=== PATIENT | male | born 1970 | race Caucasian/White ===

== ENCOUNTER 2021-04-14 15:00 | Inpatient (IN) | payer SELFPAY ==
[~2021-04-14] VITALS: Ht 165.1 cm; Wt 49.5 kg
[~2021-04-14 15:00] MED LIST: OXYC5CAP PO; PRED20TA PO
[2021-04-14] MEDS ORDERED: IV NORMAL SALINE 1000ML BAG 1,000 ML IV ONE (15:30)
[2021-04-14] MEDS ORDERED: KETOROLAC 30 MG/ML VIAL. IVP ONE (15:30)
[2021-04-14 16:02] LABS: BASO % 1 % (0-3); EOS # 0.1 x10^3/uL (0.0-0.7); EOS % 2 % (0-3); HEMATOCRIT 40.5 % (39.0-53.0); HEMOGLOBIN 13.9 g/dL (13.0-17.5); LYMPH # 1.1 x10^3/uL (1.0-4.8); LYMPH % 24 % (24-48); MEAN CORPUSCULAR HEMOGLOBIN 32 pg (25-35); MEAN CORPUSCULAR HGB CONC 34 g/dL (31-37); MEAN CORPUSCULAR VOLUME 92 fL (79-100); MONO # 0.2 x10^3/uL (0.0-1.1); MONO % 4 % (0-9); NEUT % 69 % (31-73); PLATELET COUNT 291 x10^3/uL (140-400); RED CELL DISTRIBUTION WIDTH 15.2 % (11.5-14.5); WHITE BLOOD COUNT 4.4 x10^3/uL (4.0-11.0)
[2021-04-14 16:09] LABS: CALCIUM 9.3 mg/dL (8.5-10.1); CREATININE 0.9 mg/dL (0.7-1.3); GFR 90.1; POTASSIUM 4.2 mmol/L (3.5-5.1)
[2021-04-14 16:15] LABS: ALBUMIN 3.6 g/dL (3.4-5.0); TOTAL BILIRUBIN 0.4 mg/dL (0.2-1.0); TOTAL PROTEIN 7.1 g/dL (6.4-8.2)
[2021-04-14 16:50] LABS: BILIRUBIN,URINE NEGATIVE (NEG); CLARITY,URINE CLEAR; COLOR,URINE YELLOW; NITRITE,URINE NEGATIVE (NEG); PH,URINE 6.5 (<5.0-8.0); PROTEIN,URINE NEGATIVE (NEG-TRACE)
[2021-04-14 16:57] LABS: BACTERIA,URINE 0 /HPF (0-FEW); RBC,URINE 0 /HPF (0-2); WBC,URINE 0 /HPF (0-4)
[2021-04-14] MEDS ORDERED: CONTRAST GIVEN. MC PRN (18:00)
[2021-04-14] MEDS ORDERED: IOHEXOL 300 MG/ML 100ML VIAL. IV ONE (18:00)
--- NOTE | 2021-04-14 18:33 | RAD ---
CT ABDOMEN+PELVIS W History: Left upper quadrant pain Comparison: 02/02/2021. Technique: After administration of intravenous contrast, helical CT of the abdomen and pelvis was per formed from the lung bases through the ischial tuberosities. Coronal and sagittal reconstructions wer e obtained. 75 mL of Omnipaque 300 were used. One or more of the following dose reduction techniques were utilized: Automated exposure control (AEC), Adjustment of mA and/or kV according to patient size , Use of iterative reconstruction technique such as ASiR, CT scan done according to ALARA and image g ently/image wisely Abdomen Findings: The visualized lung bases are clear. Extensive peripancreatic inflammation with numerous collections in and adjacent to the pancreas. Incr eased size of collection in the head of the pancreas measuring 3.4 x 3.4 cm, previously 1.5 x 1.5 cm. Multiloculated collection along the tail of the pancreas measuring 7.5 x 6.3 cm previously measured 10.9 x 8.0 cm. The liver, gallbladder, spleen, and bilateral adrenal glands are normal. Symmetric renal enhancement. There is no focal renal mass. There is no hydronephrosis. The visualized loops of small bowel are normal. The visualized loops of large bowel are normal. There is no evidence of bowel obstruction. Appendix is is not seen. Mild upper abdominal and pelvic free fluid. There is no mesenteric or retroperitoneal adenopathy. The abdominal aorta is normal in caliber. Pelvis Findings: Urinary bladder is normal. No pelvic free fluid. There is no pelvic or inguinal adenopathy. Degenerative changes of the spine. Grade 1 anterolisthesis at L5-S1 due to bilateral L5 pars defect. IMPRESSION: Findings suggestive of acute on chronic pancreatitis, with extensive peripancreatic fluid and numerou s pancreatic and peripancreatic collections. Collection in the pancreatic head has increased since e prior exam, while a large collection along the tail has decreased in size. Electronically signed by: David England MD (04/14/2021 6:31 PM) [facility]
--- NOTE | 2021-04-14 20:23 | PHYS DOC ---
Past Medical History Past Surgical History: Other Additional Past Surgical Histo: JAW Smoking Status: Current Every Day Smoker Alcohol Use: None General Adult EDM: Chief Complaint: ABDOMINAL PAIN HPI: HPI: Patient is a 50-year-old male presents to the emergency department chief complaint of left upper quadrant pain for the past 3 to 4 months stating that it became increasingly worse 2 days ago. Patient denies nausea vomiting or diarrhea. Patient states he has pancreatitis related to alcohol abuse, patient reports his last drink was in October 2020. Patient reports he has had every day smoker. Patient has not taken any medications prescription or [id number] for pain. Has not tried any nonpharmacological pain relief methods, states he does not have insurance and does not follow-up with a doctor, denies allergies to medications, states he takes no prescription medications at home. Patient reports his pain as an 8 out of 10, increases with movement and palpation, nothing seems to help it. Patient denies chest pain, shortness of breath, chest congestion, recent fever or chills. She denies nausea, vomiting, or diarrhea. Patient denies any other physical complaints or physical concerns. Review of Systems: Review of Systems: 14 body systems of review of systems have been reviewed. See HPI for pertinent positives and negative responses, otherwise all other systems are negative, nonpertinent or noncontributory. Constitutional: Negative except as outlined in HPI above. Skin: Negative except as outlined in HPI above. Eyes: Negative except as outlined in HPI above. HENT: Negative except as outlined in HPI above. Respiratory: Negative except as outlined in HPI above. Cardiovascular: Negative except as outlined in HPI above. GI: Negative except as outlined in HPI above. : Negative except as outlined in HPI above. Musculoskeletal: Negative except as outlined in HPI above. Integument: Negative except as outlined in HPI above. Neurologic: Negative except as outlined in HPI above. Endocrine: Negative except as outlined in HPI above. Lymphatic: Negative except as outlined in HPI above. Psychiatric: Negative except as outlined in HPI above. Heart Score: C/O Chest Pain: No Risk Factors: Risk Factors: DM, Current or recent (<one month) smoker, HTN, HLP, family history of CAD, obesity. Risk Scores: Score 0 - 3: 2.5% MACE over next 6 weeks - Discharge Home Score 4 - 6: 20.3% MACE over next 6 weeks - Admit for Clinical Observation Score 7 - 10: 72.7% MACE over next 6 weeks - Early Invasive Strategies Current Medications: Current Medications Medications (Trade) Dose Ordered Sig/Wiliam Start Time Stop Time Status Last Admin Dose Admin Info (CONTRAST GIVEN -- Rx MONITORING) 1 each PRN DAILY PRN 04/14/21 18:00 04/16/21 17:59 Iohexol (Omnipaque 300 Mg/ml) 70 ml 1X ONCE 04/14/21 18:00 04/14/21 18:01 DC 04/14/21 18:14 70 ML Ketorolac Tromethamine (Toradol 30mg Vial) 30 mg 1X ONCE 04/14/21 15:30 04/14/21 15:31 DC 04/14/21 16:46 30 MG Sodium Chloride 1,000 ml @ 1,000 mls/hr 1X ONCE 04/14/21 15:30 04/14/21 16:29 DC 04/14/21 16:20 1,000 MLS/HR Allergies: Allergies: Allergies Coded Allergies Type Severity Reaction Last Updated Verified No Known Drug Allergies 06/28/20 No Physical Exam: PE: Constitutional: Well developed, well nourished, no acute distress, non-toxic appearance. 50-year-old male in no apparent distress. HENT: Normocephalic, atraumatic. Eyes: Conjunctiva normal, no discharge. Neck: Normal range of motion, no stridor. Cardiovascular: No cyanosis appreciated, distal cap refill less than 2 seconds. Lungs & Thorax: Patient is in no respiratory distress, no audible adventitious lung sounds appreciated. Abdomen: Pain to palpation right upper quadrant, no skin discoloration or bruising of the abdomen appreciated, no masses appreciated, negative rebound tenderness, negative Del Angel sign, negative psoas sign. Skin: Warm, dry, no erythema, no rash. Back: No tenderness, no deformities. Extremities: No tenderness, no cyanosis, no clubbing, ROM intact, no edema. Neurologic: Alert and oriented X 3, normal motor function, normal sensory function, no focal deficits noted. Psychologic: Affect normal, judgement normal, mood normal. Current Patient Data: Labs: Laboratory Tests Test 04/14/21 15:37 04/14/21 16:43 White Blood Count 4.4 x10^3/uL (4.0-11.0) Red Blood Count 4.40 x10^6/uL (4.30-5.70) Hemoglobin 13.9 g/dL (13.0-17.5) Hematocrit 40.5 % (39.0-53.0) Mean Corpuscular Volume 92 fL (79-100) Mean Corpuscular Hemoglobin 32 pg (25-35) Mean Corpuscular Hemoglobin Concent 34 g/dL (31-37) Red Cell Distribution Width 15.2 % (11.5-14.5) H Platelet Count 291 x10^3/uL (140-400) Neutrophils (%) (Auto) 69 % (31-73) Lymphocytes (%) (Auto) 24 % (24-48) Monocytes (%) (Auto) 4 % (0-9) Eosinophils (%) (Auto) 2 % (0-3) Basophils (%) (Auto) 1 % (0-3) Neutrophils # (Auto) 3.0 x10^3/uL (1.8-7.7) Lymphocytes # (Auto) 1.1 x10^3/uL (1.0-4.8) Monocytes # (Auto) 0.2 x10^3/uL (0.0-1.1) Eosinophils # (Auto) 0.1 x10^3/uL (0.0-0.7) Basophils # (Auto) 0.0 x10^3/uL (0.0-0.2) Sodium Level 142 mmol/L (136-145) Potassium Level 4.2 mmol/L (3.5-5.1) Chloride Level 104 mmol/L (98-107) Carbon Dioxide Level 30 mmol/L (21-32) Anion Gap 8 (6-14) Blood Urea Nitrogen 13 mg/dL (8-26) Creatinine 0.9 mg/dL (0.7-1.3) Estimated GFR (Cockcroft-Gault) 90.1 BUN/Creatinine Ratio 14 (6-20) Glucose Level 100 mg/dL (70-99) H Calcium Level 9.3 mg/dL (8.5-10.1) Total Bilirubin 0.4 mg/dL (0.2-1.0) Aspartate Amino Transferase (AST) 15 U/L (15-37) Alanine Aminotransferase (ALT) 27 U/L (16-63) Alkaline Phosphatase 99 U/L (46-116) Total Protein 7.1 g/dL (6.4-8.2) Albumin 3.6 g/dL (3.4-5.0) Albumin/Globulin Ratio 1.0 (1.0-1.7) Lipase 202 U/L (73-393) Urine Collection Type Unknown Urine Color Yellow Urine Clarity Clear Urine pH 6.5 (<5.0-8.0) Urine Specific [place] 1.015 (1.000-1.030) Urine Protein Negative mg/dL (NEG-TRACE) Urine Glucose (UA) Negative mg/dL (NEG) Urine Ketones (Stick) Negative mg/dL (NEG) Urine Blood Negative (NEG) Urine Nitrite Negative (NEG) Urine Bilirubin Negative (NEG) Urine Urobilinogen Dipstick 1.0 mg/dL (0.2 mg/dL) Urine Leukocyte Esterase Negative (NEG) Urine RBC 0 /HPF (0-2) Urine WBC 0 /HPF (0-4) Urine Bacteria 0 /HPF (0-FEW) Urine Mucus Mod /LPF Laboratory Tests 04/14/21 15:37 Laboratory Tests 04/14/21 15:37 Vital Signs: Vital Signs Date Time Temp Pulse Resp B/P (MAP) Pulse Ox O2 Delivery O2 Flow Rate FiO2 04/14/21 18:15 75 135/63 (87) 99.0 04/14/21 16:10 100 04/14/21 15:07 98.0 16 Room Air 98.0 EKG: EKG: [] Radiology/Procedures: Radiology/Procedures: PATIENT: LEIGH OTERO ACCOUNT: [id number] : 1970 LOCATION: ER AGE: 50 SEX: M EXAM STATUS: PRE ER ORD. PHYSICIAN: CAR MENDOZA APRN REASON: Left upper quadrant pain PROCEDURE: CT ABD PELV W/ IV CONTRST ONLY CT ABDOMEN+PELVIS W History: Left upper quadrant pain Comparison: 02/02/2021. Technique: After administration of intravenous contrast, helical CT of the abd omen and pelvis was performed from the lung bases through the ischial tuberosities. Coronal and sagittal reconstructions were obtained. 75 mL of Omnipaque 300 were used. One or more of the following dose reduction techniques were utilized: Automated exposure control (AEC), Adjustment of mA and/or kV according to patient size, Use of iterative reconstruction technique such as ASiR, CT scan done according to ALARA and image gently/image wisely Abdomen Findings: The visualized lung bases are clear. Extensive peripancreatic inflammation with numerous collections in and adjacent to the pancreas. Increased size of collection in the head of the pancreas measuring 3.4 x 3.4 cm, previously 1.5 x 1.5 cm. Multiloculated collection along the tail of the pancreas measuring 7.5 x 6.3 cm previously measured 10.9 x 8.0 cm. The liver, gallbladder, spleen, and bilateral adrenal glands are normal. Symmetric renal enhancement. There is no focal renal mass. There is no hydronephrosis. The visualized loops of small bowel are normal. The visualized loops of large bowel are normal. There is no evidence of bowel obstruction. Appendix is is not seen. Mild upper abdominal and pelvic free fluid. There is no mesenteric or retroperitoneal adenopathy. The abdominal aorta is normal in caliber. Pelvis Findings: Urinary bladder is normal. No pelvic free fluid. There is no pelvic or inguinal adenopathy. Degenerative changes of the spine. Grade 1 anterolisthesis at L5-S1 due to bilateral L5 pars defect. IMPRESSION: Findings suggestive of acute on chronic pancreatitis, with extensive sanjeev pancreatic fluid and numerous pancreatic and peripancreatic collections. Collection in the pancreatic head has increased since the prior exam, while a large collection along the tail has decreased in size. Electronically signed by: David England MD (04/14/2021 6:31 PM) [facility] Course & Med Decision Making: Course & Med Decision Making Pertinent Labs and Imaging studies reviewed. (See chart for details) 50-year-old male, vital signs reviewed, presents emergency department complaining of pancreatitis pain for the past 3 to 4 months, increased last 2 days. Physical examination consistent with pancreatitis type pain, will order urinalysis assay, lab work for acute abdominal process. Will defer CT abdomen pelvis until urinalysis assay to rule out stone process. Patient's urine was not infected, no hematuria, will order CT abdomen pelvis with IV contrast only. CT abdomen pelvis concerning for acute on chronic pancreatitis with changes showing worsening of pancreatitis process. Discussed findings with patient, recommended admission to hospital, remaining n.p.o., pain control, fluids, patient is amenable to this plan. Patient states his pain is currently a 1 and is tolerable at this time, denies nausea. Called and discussed patient case and ED work-up with inpatient management physician Dr. Blankenship who agrees patient's presentation and case warrants admission to the medical surgical unit for pancreatitis flareup. 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 Patient is hemodynamically stable, nontoxic in appearance, and in no apparent distress at time of admission. Dragon Disclaimer: Sunitha Disclaimer: This electronic medical record was generated, in whole or in part, using a voice recognition dictation system. Departure Departure Impression: Primary Impression: Acute on chronic pancreatitis Additional Impression: Abdominal pain Qualified Codes: R10.12 - Left upper quadrant pain Disposition: ADMITTED INPATIENT Admitting Physician: ALFREDO (Admit to Dr. Blankenship on med surge unit.) Condition: STABLE Referrals: NO PCP (PCP) CAR MENDOZA APRN Apr 14, 2021 20:23
[2021-04-14] MEDS ORDERED: ONDANSETRON PF 4 MG/2 ML VIAL. IVP PRN (20:30)
[2021-04-14 20:41] LABS: BARBITURATES NEG (NEG); BENZODIAZEPINES NEG (NEG); CANNABINOIDS POS (NEG); COCAINE NEG (NEG); METHADONE NEG (NEG); OPIATES NEG (NEG); PHENCYCLIDINE NEG (NEG)
[2021-04-14 20:43] LABS: AMPHETAMINE/METHAMPHETAMINE NEG (NEG)
[2021-04-14 21:40] VITALS: BP 135/79
[2021-04-14] MEDS: IV NORMAL SALINE 1000ML BAG 1,000 ML IV SCH (22:06)
[2021-04-14] MEDS: MORPHINE SULFATE 4 MG/ML INJ. IVP PRN (22:06)
--- NOTE | 2021-04-14 23:00 | NUR ---
ADMIT NOTE The patient, LEIGH OTERO, 50 y/o, M admitted by SHINE DOUGHERTY MD, was given written information regarding hospital policies, unit procedures and contact persons. Patient orientated to room, plan of care discussed, and admit packet reviewed. Patient's allergies and preferred pharmacy verified; patient reports no active home medications. Patient in bed resting, bed in lowest/locked position, and call light within reach; no other needs voiced at this time.
[2021-04-15 03:42] VITALS: BP 111/70
[2021-04-15] MEDS: IV NORMAL SALINE 1000ML BAG 1,000 ML IV SCH ×6 (04:16→21:57)
[2021-04-15] MEDS: MORPHINE SULFATE 4 MG/ML INJ. IVP PRN ×3 (04:17→18:15)
--- NOTE | 2021-04-15 07:45 | PDOC1 ---
History and Physical Date of Service: DOS: DATE: 04/15/21 TIME: 07:39 Chief Complaint: Chief Complain: ABD pain History of Present Illness: HPI: 50-year-old male presents to the emergency department chief complaint of left upper quadrant pain for the past 3 to 4 months stating that it became increasingly worse 2 days ago. Patient denies nausea vomiting or diarrhea. Patient states he has pancreatitis related to alcohol abuse, patient reports his last drink was in October 2020. Patient reports he has had every day smoker. Stephy ent has not taken any medications prescription or [id number] for pain. Has not tried any nonpharmacological pain relief methods, states he does not have insurance and does not follow-up with a doctor, denies allergies to medications, states he takes no prescription medications at home. Patient reports his pain as an 8 out of 10, increases with movement and palpation, nothing seems to help it. Patient denies chest pain, shortness of breath, chest congestion, recent fever or chills. She denies nausea, vomiting, or diarrhea. Patient denies any other physical complaints or physical concerns. Past Medical/Surgical History: PMH/PSH: Past Surgical History: JAW Allergies: Allergies: Coded Allergies: No Known Drug Allergies (Unverified , 06/28/20) Family History: Family History: Reviewed with no relevant findings Social History: Social History: Smoking Status: Current Every Day Smoker Alcohol Use: None Current Medications: Current Medications Current Medications Sodium Chloride 1,000 ml @ 1,000 mls/hr 1X ONCE IV Last administered on 04/14/21at 16:20; Start 04/14/21 at 15:30; Stop 04/14/21 at 16:29; Status DC Ketorolac Tromethamine (Toradol 30mg Vial) 30 mg 1X ONCE IVP Last administered on 04/14/21at 16:46; Start 04/14/21 at 15:30; Stop 04/14/21 at 15:31; Status DC Iohexol (Omnipaque 300 Mg/ml) 70 ml 1X ONCE IV Last administered on 04/14/21at 18:14; Start 04/14/21 at 18:00; Stop 04/14/21 at 18:01; Status DC Info (CONTRAST GIVEN -- Rx MONITORING) 1 each PRN DAILY PRN MC SEE COMMENTS; Start 04/14/21 at 18:00; Stop 04/16/21 at 17:59 Ondansetron HCl (Zofran) 4 mg PRN Q8HRS PRN IVP NAUSEA/VOMITING Last administered on 04/14/21at 22:07; Start 04/14/21 at 20:30; Stop 04/15/21 at 20:29 Morphine Sulfate (Morphine Sulfate) 4 mg PRN Q2HR PRN IVP PAIN Last administered on 04/15/21at 04:17; Start 04/14/21 at 20:30; Stop 04/15/21 at 20:29 Sodium Chloride 1,000 ml @ 125 mls/hr Q8H IV Last administered on 04/15/21at 04:16; Start 04/14/21 at 20:30; Stop 04/15/21 at 20:29 Active Scripts Active No Active Prescriptions or Reported Medications ROS: Review of Systems Review of System REVIEW OF SYSTEMS: GENERAL: Denies weakness SKIN: No bruising, hair changes or rashes. EYES: No blurred, double or loss of vision. NOSE AND THROAT: No history of nosebleeds, hoarseness or sore throat. HEART: No history of palpitations, chest pain or shortness of breath on exertion. LUNGS: Denies cough, hemoptysis, wheezing or shortness of breath. GASTROINTESTINAL: Positive for abdominal pain GENITOURINARY: No history of frequency, urgency, hesitancy or nocturia. NEUROLOGIC: Denies history of numbness, tingling, or tremor. PSYCHIATRIC: No history of panic, anxiety or depression. ENDOCRINE: No history of heat or cold intolerance, polyuria or polydipsia. EXTREMITIES: Denies joint pain, pain on walking or stiffness. Physical Exam: Vital Signs: Vital Signs Date Time Temp Pulse Resp B/P (MAP) Pulse Ox O2 Delivery O2 Flow Rate FiO2 04/15/21 04:50 15 95 Room Air 04/15/21 03:42 97.9 68 111/70 (84) 97.9 04/14/21 18:15 99.0 Physcial Exam: General: Well developed, well nourished, no acute distress, well appearing HEENT: Pupils equally round and reactive to light, EOMI, no discharge, normal conjunctiva Neck: Supple, no nuchal rigidity, no JVD, trachea midline, no tenderness Cardiac: RRR, no murmurs, no gallops, no rubs Chest/Lungs: CTAB, no wheeze, no rhonchi, no crackles Abdomen: soft, non-distended, no guarding, no peritoneal signs, right upper quadrant tenderness Back: No tenderness Extremities: no edema, pulses intact, non-tender,capillary refill <3 sec bilateral upper and lower extremities, Neuro: Alert and oriented x 4, no focal deficits, normal speech Labs: Labs: Laboratory Tests Test 04/14/21 15:37 04/14/21 16:43 04/14/21 20:18 White Blood Count 4.4 x10^3/uL (4.0-11.0) Red Blood Count 4.40 x10^6/uL (4.30-5.70) Hemoglobin 13.9 g/dL (13.0-17.5) Hematocrit 40.5 % (39.0-53.0) Mean Corpuscular Volume 92 fL (79-100) Mean Corpuscular Hemoglobin 32 pg (25-35) Mean Corpuscular Hemoglobin Concent 34 g/dL (31-37) Red Cell Distribution Width 15.2 % (11.5-14.5) Platelet Count 291 x10^3/uL (140-400) Neutrophils (%) (Auto) 69 % (31-73) Lymphocytes (%) (Auto) 24 % (24-48) Monocytes (%) (Auto) 4 % (0-9) Eosinophils (%) (Auto) 2 % (0-3) Basophils (%) (Auto) 1 % (0-3) Neutrophils # (Auto) 3.0 x10^3/uL (1.8-7.7) Lymphocytes # (Auto) 1.1 x10^3/uL (1.0-4.8) Monocytes # (Auto) 0.2 x10^3/uL (0.0-1.1) Eosinophils # (Auto) 0.1 x10^3/uL (0.0-0.7) Basophils # (Auto) 0.0 x10^3/uL (0.0-0.2) Sodium Level 142 mmol/L (136-145) Potassium Level 4.2 mmol/L (3.5-5.1) Chloride Level 104 mmol/L (98-107) Carbon Dioxide Level 30 mmol/L (21-32) Anion Gap 8 (6-14) Blood Urea Nitrogen 13 mg/dL (8-26) Creatinine 0.9 mg/dL (0.7-1.3) Estimated GFR (Cockcroft-Gault) 90.1 BUN/Creatinine Ratio 14 (6-20) Glucose Level 100 mg/dL (70-99) Calcium Level 9.3 mg/dL (8.5-10.1) Total Bilirubin 0.4 mg/dL (0.2-1.0) Aspartate Amino Transf (AST/SGOT) 15 U/L (15-37) Alanine Aminotransferase (ALT/SGPT) 27 U/L (16-63) Alkaline Phosphatase 99 U/L (46-116) Total Protein 7.1 g/dL (6.4-8.2) Albumin 3.6 g/dL (3.4-5.0) Albumin/Globulin Ratio 1.0 (1.0-1.7) Lipase 202 U/L (73-393) Ethyl Alcohol Level < 10 mg/dL (0-10) Urine Collection Type Unknown Urine Color Yellow Urine Clarity Clear Urine pH 6.5 (<5.0-8.0) Urine Specific [place] 1.015 (1.000-1.030) Urine Protein Negative mg/dL (NEG-TRACE) Urine Glucose (UA) Negative mg/dL (NEG) Urine Ketones (Stick) Negative mg/dL (NEG) Urine Blood Negative (NEG) Urine Nitrite Negative (NEG) Urine Bilirubin Negative (NEG) Urine Urobilinogen Dipstick 1.0 mg/dL (0.2 mg/dL) Urine Leukocyte Esterase Negative (NEG) Urine RBC 0 /HPF (0-2) Urine WBC 0 /HPF (0-4) Urine Bacteria 0 /HPF (0-FEW) Urine Mucus Mod /LPF Urine Opiates Screen Neg (NEG) Urine Methadone Screen Neg (NEG) Urine Barbiturates Neg (NEG) Urine Phencyclidine Screen Neg (NEG) Urine Amphetamine/Methamphetamine Neg (NEG) Urine Benzodiazepines Screen Neg (NEG) Urine Cocaine Screen Neg (NEG) Urine Cannabinoids Screen Pos (NEG) Urine Ethyl Alcohol Neg (NEG) SARS-CoV-2 Antigen (Rapid) Negative (NEGATIVE) Laboratory Tests Test 04/14/21 15:37 04/14/21 16:43 04/14/21 20:18 White Blood Count 4.4 x10^3/uL (4.0-11.0) Red Blood Count 4.40 x10^6/uL (4.30-5.70) Hemoglobin 13.9 g/dL (13.0-17.5) Hematocrit 40.5 % (39.0-53.0) Mean Corpuscular Volume 92 fL (79-100) Mean Corpuscular Hemoglobin 32 pg (25-35) Mean Corpuscular Hemoglobin Concent 34 g/dL (31-37) Red Cell Distribution Width 15.2 % (11.5-14.5) Platelet Count 291 x10^3/uL (140-400) Neutrophils (%) (Auto) 69 % (31-73) Lymphocytes (%) (Auto) 24 % (24-48) Monocytes (%) (Auto) 4 % (0-9) Eosinophils (%) (Auto) 2 % (0-3) Basophils (%) (Auto) 1 % (0-3) Neutrophils # (Auto) 3.0 x10^3/uL (1.8-7.7) Lymphocytes # (Auto) 1.1 x10^3/uL (1.0-4.8) Monocytes # (Auto) 0.2 x10^3/uL (0.0-1.1) Eosinophils # (Auto) 0.1 x10^3/uL (0.0-0.7) Basophils # (Auto) 0.0 x10^3/uL (0.0-0.2) Sodium Level 142 mmol/L (136-145) Potassium Level 4.2 mmol/L (3.5-5.1) Chloride Level 104 mmol/L (98-107) Carbon Dioxide Level 30 mmol/L (21-32) Anion Gap 8 (6-14) Blood Urea Nitrogen 13 mg/dL (8-26) Creatinine 0.9 mg/dL (0.7-1.3) Estimated GFR (Cockcroft-Gault) 90.1 BUN/Creatinine Ratio 14 (6-20) Glucose Level 100 mg/dL (70-99) Calcium Level 9.3 mg/dL (8.5-10.1) Total Bilirubin 0.4 mg/dL (0.2-1.0) Aspartate Amino Transf (AST/SGOT) 15 U/L (15-37) Alanine Aminotransferase (ALT/SGPT) 27 U/L (16-63) Alkaline Phosphatase 99 U/L (46-116) Total Protein 7.1 g/dL (6.4-8.2) Albumin 3.6 g/dL (3.4-5.0) Albumin/Globulin Ratio 1.0 (1.0-1.7) Lipase 202 U/L (73-393) Ethyl Alcohol Level < 10 mg/dL (0-10) Urine Collection Type Unknown Urine Color Yellow Urine Clarity Clear Urine pH 6.5 (<5.0-8.0) Urine Specific [place] 1.015 (1.000-1.030) Urine Protein Negative mg/dL (NEG-TRACE) Urine Glucose (UA) Negative mg/dL (NEG) Urine Ketones (Stick) Negative mg/dL (NEG) Urine Blood Negative (NEG) Urine Nitrite Negative (NEG) Urine Bilirubin Negative (NEG) Urine Urobilinogen Dipstick 1.0 mg/dL (0.2 mg/dL) Urine Leukocyte Esterase Negative (NEG) Urine RBC 0 /HPF (0-2) Urine WBC 0 /HPF (0-4) Urine Bacteria 0 /HPF (0-FEW) Urine Mucus Mod /LPF Urine Opiates Screen Neg (NEG) Urine Methadone Screen Neg (NEG) Urine Barbiturates Neg (NEG) Urine Phencyclidine Screen Neg (NEG) Urine Amphetamine/Methamphetamine Neg (NEG) Urine Benzodiazepines Screen Neg (NEG) Urine Cocaine Screen Neg (NEG) Urine Cannabinoids Screen Pos (NEG) Urine Ethyl Alcohol Neg (NEG) SARS-CoV-2 Antigen (Rapid) Negative (NEGATIVE) Images: Images PROCEDURE: CT ABD PELV W/ IV CONTRST ONLY IMPRESSION: Findings suggestive of acute on chronic pancreatitis, with extensive peripancreatic fluid and numerous pancreatic and peripancreatic collections. Collection in the pancreatic head has increased since the prior exam, while a large collection along the tail has decreased in size. Assessment/Plan Assessment/Plan Acute abdominal pain due to acute pancreatitis Multiloculated fluid collections are the pancreas concerning for pancreatic pseudocyst Cannabinoid positivity Admit to hospitalist service for further management Keep n.p.o., advance diet as tolerated Continue IV fluids Pending abdominal ultrasound Pending lipid panel Serial abdominal exams IV pain control GI consult for pancreatic pseudocyst management Lovenox for DVT prophylaxis Protonix GI prophylaxis ADA diet Full code Discussed with RN and SW Disposition inpatient management as above Surrogate decision maker is aKy Lira In addition to my E/M visit, advance care planning done with A total time of 20 minutes was spent from 930 to 950 face to face in discussion with the patient regarding their goals of care, alcohol cessation, THC cessation and low-fat diet. CODE STATUS Justifications for Admission Other Justification SAPPHIRE CAMERON MD Apr 15, 2021 07:44
[2021-04-15] MEDS ORDERED: DOCUSATE SODIUM 100 MG CAPSULE. PO PRN (08:00)
[2021-04-15] MEDS ORDERED: DEXTROSE 50% 25 GM / 50ML DISP.SYRIN. IV PRN (08:00)
[2021-04-15] MEDS ORDERED: PROCHLORPERAZINE 10 MG/2 ML VIAL. IV PRN (08:00)
[2021-04-15] MEDS ORDERED: ACETAMINOPHEN 325 MG TABLET. PO PRN (08:00)
[2021-04-15] MEDS ORDERED: MORPHINE SULFATE 2 MG/ML INJ. IVP PRN (08:00)
[2021-04-15] MEDS ORDERED: SENNOSIDES 8.6 MG TABLET PO PRN (08:00)
[2021-04-15] MEDS ORDERED: ONDANSETRON PF 4 MG/2 ML VIAL. IVP PRN (08:00)
[2021-04-15] MEDS: PANTOPRAZOLE IV PUSH 40 MG VIAL. IVP SCH (09:06)
[2021-04-15] MEDS: ENOXAPARIN 40 MG/0.4 ML SYRINGE. SQ SCH (09:07)
--- NOTE | 2021-04-15 10:31 | RAD ---
EXAM: ULTRASOUND ABDOMEN LIMITED CLINICAL HISTORY: Reason: RUQ pain, rule out gallstone pancreatitis COMPARISON: None available. TECHNIQUE: Limited ultrasound examination of the right upper quadrant of the abdomen was performed. Findings/ impression: The liver length measures 15 cm. The common bile duct measures 2 mm in transverse dimension. The righ t kidney measures 10.7 x 5.5 x 4.2 cm. The gallbladder is mildly distended. No evidence of gallstones . There are multiple fluid collections identified about the pancreas with the largest measuring 7.2 c m could be pseudocysts as seen on the CT scan. Electronically signed by: Miguel Gutiérrez MD (04/15/2021 10:29 AM) [id number]
--- NOTE | 2021-04-15 10:41 | NUR ---
Dr. John here and saw pt. Order to [facility] and to give CLD now. If pt has pain with diet will advance backwards
[2021-04-15 11:00] VITALS: BP 126/79
[2021-04-15 12:39] LABS: CHOLESTEROL/HDL RATIO 4.1
[2021-04-15 15:22] VITALS: BP 150/85
--- NOTE | 2021-04-15 15:38 | PDOC2 ---
GI CONSULT Reason For Consult: pancreatitis HPI: HPI: 50-year-old male admitted with acute on chronic pancreatitis although lipase normal at 202. Imaging suggests further development of pseudocyst. He was last at [facility] 08/07 with the pseudocyst. per review of the records, he was seen by GI, Surgery and IR. IR recommended that he have endoscopic drainage of he pseudocyst. The patient states that he did not followup because he does not have insurance. He stopped drinking alcohol 10/2020. recent ct with Findings suggestive of acute on chronic pancreatitis, with extensive peripancreatic fluid and numerous pancreatic and peripancreatic collections. Collection in the pancreatic head has increased since the prior exam, while a large collection along the tail has decreased in size. Abd sono with The liver length measures 15 cm. The common bile duct measures 2 mm in transverse dimension. The right kidney measures 10.7 x 5.5 x 4.2 cm. The gall bladder is mildly distended. No evidence of gallstones. There are multiple fluid collections identified about the pancreas with the largest measuring 7.2 cm could be pseudocysts as seen on the CT scan. PMH: PMH: Past Medical/Surgical History: PMH/PSH:pancreatitis with pseudocyst last seen [facility] 08/07 Past Surgical History: JAW Allergies: Allergies: Coded Allergies: No Known Drug Allergies (Unverified , 06/28/20) Family History: Family History: Reviewed with no relevant findings Social History: Social History: Smoking Status: Current Every Day Smoker Alcohol Use: None Current Medications: Current Medications Current Medications Sodium Chloride 1,000 ml @ 1,000 mls/hr 1X ONCE IV Last administered on 04/14/21at 16:20; Start 04/14/21 at 15:30; Stop 04/14/21 at 16:29; Status DC Ketorolac Tromethamine (Toradol 30mg Vial) 30 mg 1X ONCE IVP Last administered on 04/14/21at 16:46; Start 04/14/21 at 15:30; Stop 04/14/21 at 15:31; Status DC Iohexol (Omnipaque 300 Mg/ml) 70 ml 1X ONCE IV Last administered on 04/14/21at 18:14; Start 04/14/21 at 18:00; Stop 04/14/21 at 18:01; Status DC Info (CONTRAST GIVEN -- Rx MONITORING) 1 each PRN DAILY PRN MC SEE COMMENTS; Start 04/14/21 at 18:00; Stop 04/16/21 at 17:59 Ondansetron HCl (Zofran) 4 mg PRN Q8HRS PRN IVP NAUSEA/VOMITING Last admi nistered on 04/14/21at 22:07; Start 04/14/21 at 20:30; Stop 04/15/21 at 20:29 Morphine Sulfate (Morphine Sulfate) 4 mg PRN Q2HR PRN IVP PAIN Last administered on 04/15/21at 04:17; Start 04/14/21 at 20:30; Stop 04/15/21 at 20:29 Sodium Chloride 1,000 ml @ 125 mls/hr Q8H IV Last administered on 04/15/21at 04:16; Start 04/14/21 at 20:30; Stop 04/15/21 at 20:29 Active Scripts Active No Active Prescriptions or Reported Medications FH: Family History: No pertinent hx Social History: Smoke: 1 pack per day ALCOHOL: heavy Drugs: None ROS: GEN: Denies fevers, chills, sweats HEENT: Denies blurred vision, sore throat CV: Denies chest pain RESP: Denies shortness of air, cough GI: Per HPI : Denies hematuria, dysuria ENDO: Denies weight changes NEURO: Denies confusion, dizziness MSK: Denies weakness, joint pain/swelling SKIN: Denies jaundice, pruritus VItals: Vitals: Vital Signs Date Time Temp Pulse Resp B/P (MAP) Pulse Ox O2 Delivery O2 Flow Rate FiO2 04/15/21 15:22 97.6 58 16 150/85 (106) 98 Room Air 97.6 04/14/21 18:15 99.0 Labs: Labs: Laboratory Tests Test 04/14/21 15:37 04/14/21 16:43 04/14/21 20:18 04/15/21 11:30 White Blood Count 4.4 x10^3/uL (4.0-11.0) Red Blood Count 4.40 x10^6/uL (4.30-5.70) Hemoglobin 13.9 g/dL (13.0-17.5) Hematocrit 40.5 % (39.0-53.0) Mean Corpuscular Volume 92 fL (79-100) Mean Corpuscular Hemoglobin 32 pg (25-35) Mean Corpuscular Hemoglobin Concent 34 g/dL (31-37) Red Cell Distribution Width 15.2 % (11.5-14.5) Platelet Count 291 x10^3/uL (140-400) Neutrophils (%) (Auto) 69 % (31-73) Lymphocytes (%) (Auto) 24 % (24-48) Monocytes (%) (Auto) 4 % (0-9) Eosinophils (%) (Auto) 2 % (0-3) Basophils (%) (Auto) 1 % (0-3) Neutrophils # (Auto) 3.0 x10^3/uL (1.8-7.7) Lymphocytes # (Auto) 1.1 x10^3/uL (1.0-4.8) Monocytes # (Auto) 0.2 x10^3/uL (0.0-1.1) Eosinophils # (Auto) 0.1 x10^3/uL (0.0-0.7) Basophils # (Auto) 0.0 x10^3/uL (0.0-0.2) Sodium Level 142 mmol/L (136-145) Potassium Level 4.2 mmol/L (3.5-5.1) Chloride Level 104 mmol/L (98-107) Carbon Dioxide Level 30 mmol/L (21-32) Anion Gap 8 (6-14) Blood Urea Nitrogen 13 mg/dL (8-26) Creatinine 0.9 mg/dL (0.7-1.3) Estimated GFR (Cockcroft-Gault) 90.1 BUN/Creatinine Ratio 14 (6-20) Glucose Level 100 mg/dL (70-99) Calcium Level 9.3 mg/dL (8.5-10.1) Total Bilirubin 0.4 mg/dL (0.2-1.0) Aspartate Amino Transf (AST/SGOT) 15 U/L (15-37) Alanine Aminotransferase (ALT/SGPT) 27 U/L (16-63) Alkaline Phosphatase 99 U/L (46-116) Total Protein 7.1 g/dL (6.4-8.2) Albumin 3.6 g/dL (3.4-5.0) Albumin/Globulin Ratio 1.0 (1.0-1.7) Lipase 202 U/L (73-393) Ethyl Alcohol Level < 10 mg/dL (0-10) Urine Collection Type Unknown Urine Color Yellow Urine Clarity Clear Urine pH 6.5 (<5.0-8.0) Urine Specific Rowland 1.015 (1.000-1.030) Urine Protein Negative mg/dL (NEG-TRACE) Urine Glucose (UA) Negative mg/dL (NEG) Urine Ketones (Stick) Negative mg/dL (NEG) Urine Blood Negative (NEG) Urine Nitrite Negative (NEG) Urine Bilirubin Negative (NEG) Urine Urobilinogen Dipstick 1.0 mg/dL (0.2 mg/dL) Urine Leukocyte Esterase Negative (NEG) Urine RBC 0 /HPF (0-2) Urine WBC 0 /HPF (0-4) Urine Bacteria 0 /HPF (0-FEW) Urine Mucus Mod /LPF Urine Opiates Screen Neg (NEG) Urine Methadone Screen Neg (NEG) Urine Barbiturates Neg (NEG) Urine Phencyclidine Screen Neg (NEG) Urine Amphetamine/Methamphetamine Neg (NEG) Urine Benzodiazepines Screen Neg (NEG) Urine Cocaine Screen Neg (NEG) Urine Cannabinoids Screen Pos (NEG) Urine Ethyl Alcohol Neg (NEG) SARS-CoV-2 RNA (WAGNER) Negative (Negative) SARS-CoV-2 Antigen (Rapid) Negative (NEGATIVE) Triglycerides Level 118 mg/dL (0-150) Cholesterol Level 123 mg/dL (0-200) LDL Cholesterol, Calculated 69 mg/dL (0-100) VLDL Cholesterol, Calculated 24 mg/dL (0-40) Non-HDL Cholesterol Calculated 93 mg/dL (0-129) HDL Cholesterol 30 mg/dL (40-60) Cholesterol/HDL Ratio 4.1 Imaging: Imaging: ct with Findings suggestive of acute on chronic pancreatitis, with extensive peripancreatic fluid and numerous pancreatic and peripancreatic collections. Collection in the pancreatic head has increased since the prior exam, while a large collection along the tail has decreased in size. Abd sono with The liver length measures 15 cm. The common bile duct measures 2 mm in transverse dimension. The right kidney measures 10.7 x 5.5 x 4.2 cm. The gallbl adder is mildly distended. No evidence of gallstones. There are multiple fluid collections identified about the pancreas with the largest measuring 7.2 cm could be pseudocysts as seen on the CT scan. PE: General: Well developed, well nourished, no acute distress, well appearing HEENT: Pupils equally round and reactive to light, EOMI, no discharge, normal conjunctiva Neck: Supple, no nuchal rigidity, no JVD, trachea midline, no tenderness Cardiac: RRR, no murmurs, no gallops, no rubs Chest/Lungs: CTAB, no wheeze, no rhonchi, no crackles Abdomen: soft, non-distended, no guarding, no peritoneal signs, right upper quadrant tenderness Back: No tenderness Extremities: no edema, pulses intact, non-tender,capillary refill <3 sec bilateral upper and lower extremities, Neuro: Alert and oriented x 4, no focal deficits, normal speech A/P: A/P: A&P 1) Acute and chronic pancreatitis with pseudocyst: Per d/w patient and review of records, plan had been fo outpatient eval for endoscopic eval and drainge. This would need to be done with EUS which is not available at this hospital. Will provide supportive care and defer further plans to Dr Brasher upon his return Saturday BARI MEJIA MD Apr 15, 2021 15:38
[2021-04-15] MEDS: HYDROcodone/APAP 5/325MG 1 TAB TABLET PO PRN ×2 (16:25→21:54)
[2021-04-15 19:00] VITALS: BP 137/89
[2021-04-15 23:00] VITALS: BP 119/81
[2021-04-16] VITALS (7 sets, daily range): BP systolic 124–173; BP diastolic 74–93
[2021-04-16] MEDS: HYDROcodone/APAP 5/325MG 1 TAB TABLET PO PRN ×3 (02:09→21:02)
[2021-04-16 06:17] LABS: BASO % 1 % (0-3); EOS # 0.1 x10^3/uL (0.0-0.7); EOS % 2 % (0-3); HEMATOCRIT 37.9 % (39.0-53.0); HEMOGLOBIN 12.6 g/dL (13.0-17.5); LYMPH # 1.4 x10^3/uL (1.0-4.8); LYMPH % 26 % (24-48); MEAN CORPUSCULAR HEMOGLOBIN 31 pg (25-35); MEAN CORPUSCULAR HGB CONC 33 g/dL (31-37); MEAN CORPUSCULAR VOLUME 93 fL (79-100); MONO # 0.2 x10^3/uL (0.0-1.1); MONO % 4 % (0-9); NEUT # 3.7 x10^3/uL (1.8-7.7); NEUT % 67 % (31-73); PLATELET COUNT 251 x10^3/uL (140-400); RED BLOOD COUNT 4.08 x10^6/uL (4.30-5.70); RED CELL DISTRIBUTION WIDTH 15.3 % (11.5-14.5); WHITE BLOOD COUNT 5.5 x10^3/uL (4.0-11.0)
[2021-04-16 06:36] LABS: CALCIUM 8.8 mg/dL (8.5-10.1); CREATININE 0.7 mg/dL (0.7-1.3); GFR 120.4; MAGNESIUM 1.8 mg/dL (1.8-2.4); PHOSPHORUS 2.9 mg/dL (2.6-4.7); POTASSIUM 3.6 mmol/L (3.5-5.1)
[2021-04-16] MEDS: IV NORMAL SALINE 1000ML BAG 1,000 ML IV SCH ×4 (07:25→18:46)
[2021-04-16] MEDS: PANTOPRAZOLE IV PUSH 40 MG VIAL. IVP SCH (09:20)
[2021-04-16] MEDS: ENOXAPARIN 40 MG/0.4 ML SYRINGE. SQ SCH (09:20)
--- NOTE | 2021-04-16 11:39 | PDOC ---
[employer] PROGRESS NOTE Date of Service DOS: DATE: 04/16/21 TIME: 11:35 Chief Complaint Chief Complaint Acute abdominal pain due to acute pancreatitis Multiloculated fluid collections are the pancreas concerning for pancreatic pseudocyst Cannabinoid positivity Patient will need EUS once current pancreatitis has resolved. Keep n.p.o., advance diet as tolerated Continue IV fluids Pending abdominal ultrasound Pending lipid panel Serial abdominal exams IV pain control GI consult for pancreatic pseudocyst management Lovenox for DVT prophylaxis Protonix GI prophylaxis ADA diet Full code Discussed with RN and SW Disposition inpatient management as above Surrogate decision maker is Kay Lira History of Present Illness History of Present Illness 50-year-old male presents to the emergency department chief complaint of left upper quadrant pain for the past 3 to 4 months stating that it became increasi ngly worse 2 days ago. Patient denies nausea vomiting or diarrhea. Patient states he has pancreatitis related to alcohol abuse, patient reports his last drink was in October 2020. Patient reports he has had every day smoker. Patient has not taken any medications prescription or [id number] for pain. Has not tried any nonpharmacological pain relief methods, states he does not have insurance and does not follow-up with a doctor, denies allergies to medications, states he takes no prescription medications at home. Patient reports his pain as an 8 out of 10, increases with movement and palpation, nothing seems to help it. Patient denies chest pain, shortness of breath, chest congestion, recent fever or chills. She denies nausea, vomiting, or diarrhea. Patient denies any other physical complaints or physical concerns. 04/16/2021 No acute events overnight. Patient seen and examined bedside. Patient had increasing abdominal pain with full liquid diet. As reported by the nurse overnight that patient is on the side of the bed on his knees prying his use of which pain. Will downgrade to a clear liquid diet and continue to observe. Patient's chart, labs, images were reviewed and discussed with RN Vitals/I&O Vitals/I&O: Vital Signs Date Time Temp Pulse Resp B/P (MAP) Pulse Ox O2 Delivery O2 Flow Rate FiO2 04/16/21 07:15 98.6 68 18 131/78 (95) 99 Room Air 98.6 04/16/21 02:09 99.0 I & O 04/15/21 04/15/21 04/16/21 15:00 23:00 07:00 Intake Total 740 ml 8660 ml Output Total 1700 ml 500 ml Balance 740 ml 6960 ml -500 ml Physical Exam General: Alert, Oriented X3, Cooperative Heart: Regular rate Lungs: Clear Abdomen: Normal bowel sounds, Other (Positive epigastric tenderness) Extremities: No clubbing Skin: No rashes Labs Labs: Laboratory Tests Test 04/16/21 05:55 White Blood Count 5.5 x10^3/uL (4.0-11.0) Red Blood Count 4.08 x10^6/uL (4.30-5.70) Hemoglobin 12.6 g/dL (13.0-17.5) Hematocrit 37.9 % (39.0-53.0) Mean Corpuscular Volume 93 fL (79-100) Mean Corpuscular Hemoglobin 31 pg (25-35) Mean Corpuscular Hemoglobin Concent 33 g/dL (31-37) Red Cell Distribution Width 15.3 % (11.5-14.5) Platelet Count 251 x10^3/uL (140-400) Neutrophils (%) (Auto) 67 % (31-73) Lymphocytes (%) (Auto) 26 % (24-48) Monocytes (%) (Auto) 4 % (0-9) Eosinophils (%) (Auto) 2 % (0-3) Basophils (%) (Auto) 1 % (0-3) Neutrophils # (Auto) 3.7 x10^3/uL (1.8-7.7) Lymphocytes # (Auto) 1.4 x10^3/uL (1.0-4.8) Monocytes # (Auto) 0.2 x10^3/uL (0.0-1.1) Eosinophils # (Auto) 0.1 x10^3/uL (0.0-0.7) Basophils # (Auto) 0.0 x10^3/uL (0.0-0.2) Sodium Level 143 mmol/L (136-145) Potassium Level 3.6 mmol/L (3.5-5.1) Chloride Level 107 mmol/L (98-107) Carbon Dioxide Level 27 mmol/L (21-32) Anion Gap 9 (6-14) Blood Urea Nitrogen 6 mg/dL (8-26) Creatinine 0.7 mg/dL (0.7-1.3) Estimated GFR (Cockcroft-Gault) 120.4 Glucose Level 98 mg/dL (70-99) Calcium Level 8.8 mg/dL (8.5-10.1) Phosphorus Level 2.9 mg/dL (2.6-4.7) Magnesium Level 1.8 mg/dL (1.8-2.4) Assessment and Plan Assessmemt and Plan Problems Medical Problems: (1) Abdominal pain Status: Acute (2) Acute on chronic pancreatitis Status: Acute Comment Review of Relevant I have reviewed the following items fernando (where applicable) has been applied. Justifications for Admission Other Justification Acute pancreatitis SAPPHIRE CAMERON MD Apr 16, 2021 11:39
--- NOTE | 2021-04-16 14:30 | PDOC ---
Date of Service: DATE: 04/16/21 TIME: 14:29 Subjective: Subjective: No new events Objective: Vital Signs: Vital Signs Date Time Temp Pulse Resp B/P (MAP) Pulse Ox O2 Delivery O2 Flow Rate FiO2 04/16/21 11:00 98.3 77 16 142/83 (102) 98 98.3 04/16/21 07:15 Room Air 04/16/21 02:09 99.0 Labs: Laboratory Tests Test 04/16/21 05:55 White Blood Count 5.5 x10^3/uL (4.0-11.0) Red Blood Count 4.08 x10^6/uL (4.30-5.70) Hemoglobin 12.6 g/dL (13.0-17.5) Hematocrit 37.9 % (39.0-53.0) Mean Corpuscular Volume 93 fL (79-100) Mean Corpuscular Hemoglobin 31 pg (25-35) Mean Corpuscular Hemoglobin Concent 33 g/dL (31-37) Red Cell Distribution Width 15.3 % (11.5-14.5) Platelet Count 251 x10^3/uL (140-400) Neutrophils (%) (Auto) 67 % (31-73) Lymphocytes (%) (Auto) 26 % (24-48) Monocytes (%) (Auto) 4 % (0-9) Eosinophils (%) (Auto) 2 % (0-3) Basophils (%) (Auto) 1 % (0-3) Neutrophils # (Auto) 3.7 x10^3/uL (1.8-7.7) Lymphocytes # (Auto) 1.4 x10^3/uL (1.0-4.8) Monocytes # (Auto) 0.2 x10^3/uL (0.0-1.1) Eosinophils # (Auto) 0.1 x10^3/uL (0.0-0.7) Basophils # (Auto) 0.0 x10^3/uL (0.0-0.2) Sodium Level 143 mmol/L (136-145) Potassium Level 3.6 mmol/L (3.5-5.1) Chloride Level 107 mmol/L (98-107) Carbon Dioxide Level 27 mmol/L (21-32) Anion Gap 9 (6-14) Blood Urea Nitrogen 6 mg/dL (8-26) Creatinine 0.7 mg/dL (0.7-1.3) Estimated GFR (Cockcroft-Gault) 120.4 Glucose Level 98 mg/dL (70-99) Calcium Level 8.8 mg/dL (8.5-10.1) Phosphorus Level 2.9 mg/dL (2.6-4.7) Magnesium Level 1.8 mg/dL (1.8-2.4) Physical Exam: Physical Exam: asleep Assessment & Plan: Assessment : 1) Acute and chronic pancreatitis with pseudocyst: Per d/w patient and review of records, plan had been fo outpatient eval for endoscopic eval and drainge. This would need to be done with EUS which is not available at this hospital. Plan: Will provide supportive care and defer further plans to Dr Brasher upon his return Saturday Justicifation of Admission Dx: Justifications for Admission: Justification of Admission Dx: Yes BARI MEJIA MD Apr 16, 2021 14:30
[2021-04-16] MEDS: MORPHINE SULFATE 2 MG/ML INJ. IV PRN ×2 (18:54→20:36)
[2021-04-17] MEDS: IV NORMAL SALINE 1000ML BAG 1,000 ML IV SCH ×2 (01:00→05:00)
[2021-04-17 03:00] VITALS: BP 133/82
[2021-04-17 07:00] VITALS: BP 129/83
[2021-04-17 07:00] LABS: CALCIUM 9.4 mg/dL (8.5-10.1); CREATININE 0.7 mg/dL (0.7-1.3); GFR 120.4; MAGNESIUM 1.8 mg/dL (1.8-2.4); POTASSIUM 3.5 mmol/L (3.5-5.1)
[2021-04-17 07:37] LABS: BASO # 0.1 x10^3/uL (0.0-0.2); BASO % 1 % (0-3); EOS # 0.1 x10^3/uL (0.0-0.7); EOS % 1 % (0-3); HEMATOCRIT 41.1 % (39.0-53.0); LYMPH # 1.6 x10^3/uL (1.0-4.8); LYMPH % 19 % (24-48); MEAN CORPUSCULAR HEMOGLOBIN 31 pg (25-35); MEAN CORPUSCULAR HGB CONC 34 g/dL (31-37); MEAN CORPUSCULAR VOLUME 92 fL (79-100); MONO # 0.3 x10^3/uL (0.0-1.1); MONO % 4 % (0-9); NEUT # 6.3 x10^3/uL (1.8-7.7); NEUT % 75 % (31-73); PLATELET COUNT 291 x10^3/uL (140-400); RED CELL DISTRIBUTION WIDTH 15.1 % (11.5-14.5); WHITE BLOOD COUNT 8.4 x10^3/uL (4.0-11.0)
[2021-04-17] MEDS: PANTOPRAZOLE IV PUSH 40 MG VIAL. IVP SCH (08:06)
[2021-04-17] MEDS: ENOXAPARIN 40 MG/0.4 ML SYRINGE. SQ SCH (08:07)
--- NOTE | 2021-04-17 09:59 | NUR ---
assumed care at this time. he is sleeping .
--- NOTE | 2021-04-17 10:08 | PDOC ---
Date of Service: DATE: 04/17/21 TIME: 10:00 Subjective: Subjective: Tolerating full liquids and trying to wean down morphine, had a stool. Says his is going to call about getting health insurance. Objective: Vital Signs: Vital Signs Date Time Temp Pulse Resp B/P (MAP) Pulse Ox O2 Delivery O2 Flow Rate FiO2 04/17/21 07:00 97.5 68 16 129/83 (98) 100 Room Air 97.5 04/16/21 21:06 99.0 Labs: Laboratory Tests Test 04/17/21 06:00 White Blood Count 8.4 x10^3/uL Red Blood Count 4.50 x10^6/uL Hemoglobin 14.0 g/dL Hematocrit 41.1 % Mean Corpuscular Volume 92 fL Mean Corpuscular Hemoglobin 31 pg Mean Corpuscular Hemoglobin Concent 34 g/dL Red Cell Distribution Width 15.1 % Platelet Count 291 x10^3/uL Neutrophils (%) (Auto) 75 % Lymphocytes (%) (Auto) 19 % Monocytes (%) (Auto) 4 % Eosinophils (%) (Auto) 1 % Basophils (%) (Auto) 1 % Neutrophils # (Auto) 6.3 x10^3/uL Lymphocytes # (Auto) 1.6 x10^3/uL Monocytes # (Auto) 0.3 x10^3/uL Eosinophils # (Auto) 0.1 x10^3/uL Basophils # (Auto) 0.1 x10^3/uL Sodium Level 138 mmol/L Potassium Level 3.5 mmol/L Chloride Level 102 mmol/L Carbon Dioxide Level 28 mmol/L Anion Gap 8 Blood Urea Nitrogen 4 mg/dL Creatinine 0.7 mg/dL Estimated GFR (Cockcroft-Gault) 120.4 Glucose Level 95 mg/dL Calcium Level 9.4 mg/dL Magnesium Level 1.8 mg/dL Imaging: CT A/P Abdomen Findings: The visualized lung bases are clear. Extensive peripancreatic inflammation with numerous collections in and adjacent to the pancreas. Increased size of collection in the head of the pancreas measuring 3.4 x 3.4 cm, previously 1.5 x 1.5 cm. Multiloculated collection along the tail of the pancreas measuring 7.5 x 6.3 cm previously measured 10.9 x 8.0 cm. The liver, gallbladder, spleen, and bilateral adrenal glands are normal. Symmetric renal enhancement. There is no focal renal mass. There is no hydronephrosis. The visualized loops of small bowel are normal. The visualized loops of large bowel are normal. There is no evidence of bowel obstruction. Appendix is is not seen. Mild upper abdominal and pelvic free fluid. There is no mesenteric or retroperitoneal adenopathy. The abdominal aorta is normal in caliber. Pelvis Findings: Urinary bladder is normal. No pelvic free fluid. There is no pelvic or inguinal adenopathy. Degenerative changes of the spine. Grade 1 anterolisthesis at L5-S1 due to bilateral L5 pars defect. IMPRESSION: Findings suggestive of acute on chronic pancreatitis, with extensive peripancreatic fluid and numerous pancreatic and peripancreatic collections. Collection in the pancreatic head has increased since the prior exam, while a large collection along the tail has decreased in size. Abd US The liver length measures 15 cm. The common bile duct measures 2 mm in transverse dimension. The right kidney measures 10.7 x 5.5 x 4.2 cm. The gallbladder is mildly distended. No evidence of gallstones. There are multiple fluid collections identified about the pancreas with the largest measuring 7.2 cm could be pseudocysts as seen on the CT scan. PE: GEN: NAD, thin LUNGS: CTAB HEART: RRR ABD: quiet BS, soft, non-tender NEURO/PSYCH: A & O 3 A/P: Acute on chronic pancreatitis, h/o alcohol, fluid collections and pseudocysts +cannabinoids COVID negative -- Previously recommended interval imaging and drainage w/ EUS or surgery during admission in 06/2020 which he did not pursue. Encouraged his plans to get health insurance. No alcohol. PO PPI since tolerating diet. DC per primary. Justicifation of Admission Dx: Justifications for Admission: Justification of Admission Dx: Yes FUNMILAYO BOSS Apr 17, 2021 10:08
--- NOTE | 2021-04-17 10:11 | NUR ---
SW following. Discussed with RN, pt from home, room air, full liquid diet, COVID-19 negative. GI following. Pt in pain. Med Assist following for self pay status. SW will continue to follow.
[2021-04-17 10:56] VITALS: BP 123/74
[2021-04-17] MEDS: HYDROcodone/APAP 5/325MG 1 TAB TABLET PO PRN ×2 (13:04→17:10)
--- NOTE | 2021-04-17 13:47 | PDOC ---
[employer] PROGRESS NOTE Date of Service DOS: DATE: 04/17/21 TIME: 13:47 Chief Complaint Chief Complaint Acute abdominal pain due to acute pancreatitis Multiloculated fluid collections are the pancreas concerning for pancreatic pseudocyst Cannabinoid positivity Patient will need EUS once current pancreatitis has resolved. Protonix GI prophylaxis ADA diet Full code Discussed with RN and SW Disposition inpatient management as above Surrogate decision maker is Kay Lira History of Present Illness History of Present Illness 50-year-old male presents to the emergency department chief complaint of left upper quadrant pain for the past 3 to 4 months stating that it became increasingly worse 2 days ago. Patient denies nausea vomiting or diarrhea. Patient states he has pancreatitis related to alcohol abuse, patient reports his last drink was in October 2020. Patient reports he has had every day smoker. Patient has not taken any medications prescription or [id number] for pain. Has not tried any nonpharmacological pain relief methods, states he does not have insurance and does not follow-up with a doctor, denies allergies to medications, states he takes no prescription medications at home. Patient reports his pain as an 8 out of 10, increases with movement and palpation, not efrain seems to help it. Patient denies chest pain, shortness of breath, chest congestion, recent fever or chills. She denies nausea, vomiting, or diarrhea. Patient denies any other physical complaints or physical concerns. 04/15: RUQ US: The liver length measures 15 cm. The common bile duct measures 2 mm in transverse dimension. The right kidney measures 10.7 x 5.5 x 4.2 cm. The gallbladder is mildly distended. No evidence of gallstones. There are multiple fluid collections identified about the pancreas with the largest measuring 7.2 cm could be pseudocysts as seen on the CT scan. 04/16/2021 No acute events overnight. Patient seen and examined bedside. Patient had increasing abdominal pain with full liquid diet. As reported by the nurse overnight that patient is on the side of the bed on his knees prying his use of which pain. Will downgrade to a clear liquid diet and continue to observe. Patient's chart, labs, images were reviewed and discussed with RN Tolerating diet well today asking if he may go home. Asking for work note. No chest pain shortness of breath. Advised to have outpatient follow-up with GI for consideration of EUS with possible pancreatic pseudocyst drainage. Vitals/I&O Vitals/I&O: Vital Signs Date Time Temp Pulse Resp B/P (MAP) Pulse Ox O2 Delivery O2 Flow Rate FiO2 04/17/21 10:56 98.2 92 20 123/74 (90) 95 Room Air 98.2 04/16/21 21:06 99.0 I & O 04/16/21 04/16/21 04/17/21 15:00 23:00 07:00 Intake Total 1890 ml Output Total 700 ml 1550 ml Balance 1190 ml -1550 ml Physical Exam General: Alert, Oriented X3, Cooperative Heart: Regular rate Lungs: Clear Abdomen: Normal bowel sounds, Other (Positive epigastric tenderness) Extremities: No clubbing Skin: No rashes Labs Labs: Laboratory Tests Test 04/17/21 06:00 White Blood Count 8.4 x10^3/uL (4.0-11.0) Red Blood Count 4.50 x10^6/uL (4.30-5.70) Hemoglobin 14.0 g/dL (13.0-17.5) Hematocrit 41.1 % (39.0-53.0) Mean Corpuscular Volume 92 fL (79-100) Mean Corpuscular Hemoglobin 31 pg (25-35) Mean Corpuscular Hemoglobin Concent 34 g/dL (31-37) Red Cell Distribution Width 15.1 % (11.5-14.5) Platelet Count 291 x10^3/uL (140-400) Neutrophils (%) (Auto) 75 % (31-73) Lymphocytes (%) (Auto) 19 % (24-48) Monocytes (%) (Auto) 4 % (0-9) Eosinophils (%) (Auto) 1 % (0-3) Basophils (%) (Auto) 1 % (0-3) Neutrophils # (Auto) 6.3 x10^3/uL (1.8-7.7) Lymphocytes # (Auto) 1.6 x10^3/uL (1.0-4.8) Monocytes # (Auto) 0.3 x10^3/uL (0.0-1.1) Eosinophils # (Auto) 0.1 x10^3/uL (0.0-0.7) Basophils # (Auto) 0.1 x10^3/uL (0.0-0.2) Sodium Level 138 mmol/L (136-145) Potassium Level 3.5 mmol/L (3.5-5.1) Chloride Level 102 mmol/L (98-107) Carbon Dioxide Level 28 mmol/L (21-32) Anion Gap 8 (6-14) Blood Urea Nitrogen 4 mg/dL (8-26) Creatinine 0.7 mg/dL (0.7-1.3) Estimated GFR (Cockcroft-Gault) 120.4 Glucose Level 95 mg/dL (70-99) Calcium Level 9.4 mg/dL (8.5-10.1) Magnesium Level 1.8 mg/dL (1.8-2.4) Assessment and Plan Assessmemt and Plan Problems Medical Problems: (1) Abdominal pain Status: Acute (2) Acute on chronic pancreatitis Status: Acute Comment Review of Relevant I have reviewed the following items fernando (where applicable) has been applied. Justifications for Admission Other Justification Acute pancreatitis SHINE PAIGE MD Apr 17, 2021 13:47
[2021-04-17] MEDS ORDERED: OMEP20TA8 PO (14:00)
[2021-04-17] MEDS ORDERED: TRAM50TA PO (14:00)
--- NOTE | 2021-04-17 14:07 | PDOC3 ---
Discharge Summary Visit Information Date of Admission: Apr 14, 2021 Date of Discharge: Apr 17, 2021 Admitting Diagnosis: Acute pancreatitis Final Diagnosis Problems Medical Problems: (1) Abdominal pain Status: Acute (2) Acute on chronic pancreatitis Status: Acute Brief Hospital Course Allergies Allergies Coded Allergies Type Severity Reaction Last Updated Verified No Known Drug Allergies 06/28/20 No Vital Signs Vital Signs Date Time Temp Pulse Resp B/P (MAP) Pulse Ox O2 Delivery O2 Flow Rate FiO2 04/17/21 10:56 98.2 92 20 123/74 (90) 95 Room Air 98.2 04/16/21 21:06 99.0 Lab Results Laboratory Tests Test 04/16/21 05:55 04/17/21 06:00 White Blood Count 5.5 x10^3/uL (4.0-11.0) 8.4 x10^3/uL (4.0-11.0) Red Blood Count 4.08 x10^6/uL (4.30-5.70) 4.50 x10^6/uL (4.30-5.70) Hemoglobin 12.6 g/dL (13.0-17.5) 14.0 g/dL (13.0-17.5) Hematocrit 37.9 % (39.0-53.0) 41.1 % (39.0-53.0) Mean Corpuscular Volume 93 fL (79-100) 92 fL (79-100) Mean Corpuscular Hemoglobin 31 pg (25-35) 31 pg (25-35) Mean Corpuscular Hemoglobin Concent 33 g/dL (31-37) 34 g/dL (31-37) Red Cell Distribution Width 15.3 % (11.5-14.5) 15.1 % (11.5-14.5) Platelet Count 251 x10^3/uL (140-400) 291 x10^3/uL (140-400) Neutrophils (%) (Auto) 67 % (31-73) 75 % (31-73) Lymphocytes (%) (Auto) 26 % (24-48) 19 % (24-48) Monocytes (%) (Auto) 4 % (0-9) 4 % (0-9) Eosinophils (%) (Auto) 2 % (0-3) 1 % (0-3) Basophils (%) (Auto) 1 % (0-3) 1 % (0-3) Neutrophils # (Auto) 3.7 x10^3/uL (1.8-7.7) 6.3 x10^3/uL (1.8-7.7) Lymphocytes # (Auto) 1.4 x10^3/uL (1.0-4.8) 1.6 x10^3/uL (1.0-4.8) Monocytes # (Auto) 0.2 x10^3/uL (0.0-1.1) 0.3 x10^3/uL (0.0-1.1) Eosinophils # (Auto) 0.1 x10^3/uL (0.0-0.7) 0.1 x10^3/uL (0.0-0.7) Basophils # (Auto) 0.0 x10^3/uL (0.0-0.2) 0.1 x10^3/uL (0.0-0.2) Sodium Level 143 mmol/L (136-145) 138 mmol/L (136-145) Potassium Level 3.6 mmol/L (3.5-5.1) 3.5 mmol/L (3.5-5.1) Chloride Level 107 mmol/L (98-107) 102 mmol/L (98-107) Carbon Dioxide Level 27 mmol/L (21-32) 28 mmol/L (21-32) Anion Gap 9 (6-14) 8 (6-14) Blood Urea Nitrogen 6 mg/dL (8-26) 4 mg/dL (8-26) Creatinine 0.7 mg/dL (0.7-1.3) 0.7 mg/dL (0.7-1.3) Estimated GFR (Cockcroft-Gault) 120.4 120.4 Glucose Level 98 mg/dL (70-99) 95 mg/dL (70-99) Calcium Level 8.8 mg/dL (8.5-10.1) 9.4 mg/dL (8.5-10.1) Phosphorus Level 2.9 mg/dL (2.6-4.7) Magnesium Level 1.8 mg/dL (1.8-2.4) 1.8 mg/dL (1.8-2.4) Laboratory Tests Test 04/17/21 06:00 White Blood Count 8.4 x10^3/uL (4.0-11.0) Red Blood Count 4.50 x10^6/uL (4.30-5.70) Hemoglobin 14.0 g/dL (13.0-17.5) Hematocrit 41.1 % (39.0-53.0) Mean Corpuscular Volume 92 fL (79-100) Mean Corpuscular Hemoglobin 31 pg (25-35) Mean Corpuscular Hemoglobin Concent 34 g/dL (31-37) Red Cell Distribution Width 15.1 % (11.5-14.5) Platelet Count 291 x10^3/uL (140-400) Neutrophils (%) (Auto) 75 % (31-73) Lymphocytes (%) (Auto) 19 % (24-48) Monocytes (%) (Auto) 4 % (0-9) Eosinophils (%) (Auto) 1 % (0-3) Basophils (%) (Auto) 1 % (0-3) Neutrophils # (Auto) 6.3 x10^3/uL (1.8-7.7) Lymphocytes # (Auto) 1.6 x10^3/uL (1.0-4.8) Monocytes # (Auto) 0.3 x10^3/uL (0.0-1.1) Eosinophils # (Auto) 0.1 x10^3/uL (0.0-0.7) Basophils # (Auto) 0.1 x10^3/uL (0.0-0.2) Sodium Level 138 mmol/L (136-145) Potassium Level 3.5 mmol/L (3.5-5.1) Chloride Level 102 mmol/L (98-107) Carbon Dioxide Level 28 mmol/L (21-32) Anion Gap 8 (6-14) Blood Urea Nitrogen 4 mg/dL (8-26) Creatinine 0.7 mg/dL (0.7-1.3) Estimated GFR (Cockcroft-Gault) 120.4 Glucose Level 95 mg/dL (70-99) Calcium Level 9.4 mg/dL (8.5-10.1) Magnesium Level 1.8 mg/dL (1.8-2.4) Brief Hospital Course 50-year-old male presents to the emergency department chief complaint of left upper quadrant pain for the past 3 to 4 months stating that it became increasingly worse 2 days ago. Patient denies nausea vomiting or diarrhea. Patient states he has pancreatitis related to alcohol abuse, patient reports his last drink was in October 2020. Patient reports he has had every day smoker. Patient has not taken any medications prescription or [id number] for pain. Has not tried any nonpharmacological pain relief methods, states he does not have insurance and does not follow-up with a doctor, denies allergies to medications, states he takes no prescription medications at home. Patient reports his pain as an 8 out of 10, increases with movement and palpation, nothing seems to help it. Patient denies chest pain, shortness of breath, chest congestion, recent fever or chills. She denies nausea, vomiting, or diarrhea. Patient denies any other physical complaints or physical concerns. 04/15: RUQ US: The liver length measures 15 cm. The common bile duct measures 2 mm in transverse dimension. The right kidney measures 10.7 x 5.5 x 4.2 cm. The gallbladder is mildly distended. No evidence of gallstones. There are multiple fluid collections identified about the pancreas with the largest measuring 7.2 cm could be pseudocysts as seen on the CT scan. 04/16/2021 No acute events overnight. Patient seen and examined bedside. Patient had increasing abdominal pain with full liquid diet. As reported by the nurse over night that patient is on the side of the bed on his knees prying his use of which pain. Will downgrade to a clear liquid diet and continue to observe. Patient's chart, labs, images were reviewed and discussed with RN Tolerating diet well today asking if he may go home. Asking for work note. No chest pain shortness of breath. Advised to have outpatient follow-up with GI for consideration of EUS with possible pancreatic pseudocyst drainage. Consults: Gastroenterology Problem list: Acute abdominal pain due to acute pancreatitis Multiloculated fluid collections are the pancreas concerning for pancreatic pseudocyst Cannabinoid positivity Patient will need EUS once current pancreatitis has resolved. Protonix GI prophylaxis ADA diet Full code Discussed with RN and SW Disposition inpatient management as above Surrogate decision maker is Kay Lira Greater than 30 minutes spent on d/c home with self care. Remain out of work until 04/19/2021 Discharge Information Condition at Discharge: Improved Follow Up: Weeks (1) Disposition/Orders: D/C to Home Scheduled Omeprazole (Omeprazole) 20 Mg Tablet.dr, 1 TAB PO DAILY for GERD for 30 Days, #30 Ref 1 Prescribed by: SHINE PAIGE MD on 04/17/21 1400 Scheduled PRN Tramadol Hcl (Tramadol Hcl) 50 Mg Tablet, 50 MG PO PRN Q6HRS PRN for PAIN for 5 Days, #5 Prescribed by: SHINE PAIGE MD on 04/17/21 1401 Justicifation of Admission Dx: Justifications for Admission: Justification of Admission Dx: Yes SHINE PAIGE MD Apr 17, 2021 14:07
--- NOTE | 2021-04-17 14:25 | NUR ---
pt was having abdominal pain prior to eating. pt ate about 50% of his lunch
[2021-04-17 15:00] VITALS: BP 129/80
--- NOTE | 2021-04-17 17:46 | NUR ---
pt to be discharged after dinner, if tolerated well. pt to be sent home with pain medication and instructions to follow up in 1 week with primary care physician.
[2021-04-17 19:00] VITALS: BP 133/79
--- NOTE | 2021-04-17 20:13 | NUR ---
Patient DC home in stable condition with belongings per wheelchair. DC instructions and medications reviewed with patient.
[2021-04-18] MEDS ORDERED: PANTOPRAZOLE 40 MG TABLET.DR. PO SCH (07:30)
== END 2021-04-17 20:35 | disposition home or self-care (01) | DRG 439 ==
LOC: ER 15:00 → 4 NORTH 20:00
PROVIDERS: ADMIT Student in an Organized Health Care Education/Training Program; ATTEND Student in an Organized Health Care Education/Training Program
DX: K85.90 Acute pancreatitis without necrosis or infection, unspecified (principal); K86.3 Pseudocyst of pancreas; K86.1 Other chronic pancreatitis; F17.210 Nicotine dependence, cigarettes, uncomplicated; F10.10 Alcohol abuse, uncomplicated; Z20.822 Contact with and (suspected) exposure to COVID-19; Z79.899 Other long term (current) drug therapy
CPT/HCPCS: 36415; 74177; 76705; 80048; 80053; 80061; 80307; 81001; 83690; 83735; 84100; 85025; 87426; 96361; 96374; C9113; G0480; J1650; J1885; J2270; J2405; J7030; Q9967; U0003; U0005; 99285-25; G0378